=== PATIENT | female | born 1950 | race Caucasian/White ===

== ENCOUNTER 2016-09-06 17:32 | Emergency (ER) | payer MEDICAID ==
[2016-09-06] MEDS ORDERED: Ondansetron 4 MG Tab.DIS PO ONE (18:20)
[2016-09-06] MEDS ORDERED: Dexamethasone 4 MG/ML SDV PO ONE (18:21)
[2016-09-06] MEDS ORDERED: Morphine 10 MG/ML Syringe IM ONE (18:21)
--- NOTE | 2016-09-06 18:25 | EDM.PDOC ---
ED HPI GENERAL MEDICAL PROBLEM - General Chief Complaint: Back Pain or Injury Stated Complaint: BACK PAIN Time Seen by Provider: 09/06/16 18:00 Source of Information: Reports: Patient, Family History Limitations: Reports: No Limitations - History of Present Illness INITIAL COMMENTS - FREE TEXT/NARRATIVE: Lyric is a 65 year old female who presents to the ED today with ongoing progressive right mid back pain and spasms. Patient reports that around 5 days ago she was scrubbing her kitchen floor and when she turned to the side she immediately felt a "twinge" in her right mid back. Patient has had pain since that time that has now become "unbearable". Patient has been taking Flexeril and Ibuprofen at home with minimal relief. She denies any urinary symptoms, hematuria, fever or chills. Patient does endorse nausea which she attributes to her pain. Onset: Gradual Duration: Day(s): (5) right mid to lower back Pain Score (Numeric/FACES): 10 - Related Data Allergies Allergy/AdvReac Type Severity Reaction Status Date / Time aspirin Allergy Unknown pt unsure Verified 09/06/16 17:51 Penicillins Allergy Unknown pt unsure Verified 09/06/16 17:51 codeine Allergy Abdominal Verified 09/06/16 17:51 Cramps Home Meds: Home Meds Albuterol Sulfate [Proair Hfa] 8.5 gm IH ASDIRECTED PRN 04/15/13 [History] Cholecalciferol (Vitamin D3) [Vitamin D3] 5,000 unit PO DAILY 04/15/13 [History] Omeprazole 40 mg PO DAILY 04/15/13 [History] Budesonide/Formoterol [Symbicort 160-4.5 MCG] 2 puff INH BID 10/18/13 [History] Cetirizine [ZyrTEC] 10 mg PO DAILY 10/18/13 [History] Albuterol/Ipratropium [DuoNeb 3.0-0.5 MG/3 ML] 3 ml NEB QIDRT #120 neb 10/24/13 [Rx] Albuterol Sulfate 2.5 mg INH Q4H 12/06/15 [History] Potassium Chloride 20 mg PO DAILY 12/06/15 [History] Tiotropium [Spiriva Handihaler] 18 mcg INH DAILY 12/06/15 [History] Cyclobenzaprine HCl [Cyclobenzaprine HCl] 10 mg PO TID 02/20/16 [History] Ketorolac Tromethamine [IJD: Ketorolac Tromethamine] 10 mg PO ASDIRECTED PRN 12/26 [History] LORazepam [LORazepam] 2 mg PO DAILY 02/20/16 [History] Metoprolol Tartrate [Metoprolol Tartrate] 12.5 mg PO BID 02/20/16 [History] Ticagrelor [Brilinta] 90 mg PO DAILY 02/20/16 [History] Citalopram Hydrobromide [Celexa] 20 mg PO DAILY 09/06/16 [History] atorvaSTATin [Lipitor] 20 mg PO DAILY 09/06/16 [History] lamoTRIgine [LaMICtal] 200 mg PO DAILY 09/06/16 [History] lamoTRIgine [Lamotrigine] 100 mg PO BEDTIME 09/06/16 [History] risperiDONE Microspheres [RisperiDAL Consta] 25 mg IM ASDIRECTED 09/06/16 [ History] Past Medical History HEENT History: Reports: Impaired Vision Respiratory History: Reports: Asthma, COPD, Pneumonia, Recurrent, Other (See Below) Other Respiratory History: O2 at 2 L at night 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 History: Reports: 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: Musculoskeletal History: Reports: None Psychiatric History: Reports: Anxiety, Schizophrenia Dermatologic History: Reports: Psoriasis - Infectious Disease History Infectious Disease History: Reports: Chicken Pox - Past Surgical History HEENT Surgical History: Reports: Other (See Below) Other HEENT Surgeries/Procedures: ear surgery GI Surgical History: Reports: None Musculoskeletal Surgical History: Reports: Other (See Below) Other Musculoskeletal Surgeries/Procedures:: ankle surgery Oncologic Surgical History: Reports: Biopsy of Breast Social & Family History - Family History Cardiac: Reports: Afib, Hypertension Respiratory: Reports: COPD - Tobacco Use Smoking Status *Q: Former Smoker Years of Tobacco use: 35 Packs/Tins Daily: 2 Used Tobacco, but Quit: Yes Month Tobacco Last Used: feb Second Hand Smoke Exposure: Yes - Caffeine Use Caffeine Use: Reports: Coffee - Alcohol Use Days Per Week of Alcohol Use: 2 Number of Drinks Per Day: 2 Total Drinks Per Week: 4 - Recreational Drug Use Recreational Drug Use: No - Living Situation & Occupation Living situation: Reports: with Significant Other ED ROS GENERAL - Review of Systems Review Of Systems: ROS reveals no pertinent complaints other than HPI. ED EXAM, UPPER BACK/NECK PAIN - Physical Exam Exam: See Below Exam Limited By: No Limitations General Appearance: Alert, WD/WN, Moderate Distress Neck Exam: Non-Tender, Full Range of Motion Cardiovascular/Respiratory: Normal Peripheral Pulses, Normal Breath Sounds Back Exam: Normal Inspection, Muscle Spasm, Other (Right sided tenderness, right lateral to thoracic spine) Extremities: Normal Inspection, Normal Range of Motion Neurologic: metal coater II-XII nml As Tested, No Motor/Sensory Deficits, Oriented x 3 Skin Exam: Normal Color, Warm/Dry Lymphatic: No Adenopathy Course - Vital Signs Last Recorded V/S: Last Vital Signs Temp 36.1 C 09/06/16 17:46 Pulse 90 09/06/16 19:50 Resp 16 09/06/16 19:50 BP 131/98 H 09/06/16 19:50 Pulse Ox 92 L 09/06/16 19:50 Lyric is a 65 year old female with a hx of COPD who presents to the ED today with c/o mid right sided back pain. Please refer to HPI and focused exam. Patient on exam is well hydrated, she is non-toxic appearing. Patient is having spasms in her right sided thoracic area on exam, she is tender there as well, area of tenderness also encompasses CVA region. Likely musculoskeletal given hx although ureteral stone and kidney infection are on the differential. Patient was given a dose of oral Decadron here as well as IM morphine and IM Valium, she reports minimal pain relief with these. UA was obtained and returns with 30-40 WBC's and large leukocyte esterase as well as 50 glucose. UC pending. Given patient's positive UA and lack of pain relief with IM medication, PIV was established, patient was given 1 liter of NS and IV Rocephin. She was given IV dilaudid and toradol for her pain. Blood work obtained, CBC returns with white count of 13.4 and is otherwise unremarkable. CMP returns with sodium of 136, potassium of 3.5 and glucose of 213. Patient has no documented hx of diabetes. Creatinine is reassuring at 0.9. AST mildly elevated at 57 and alkaline phos is 150. Patient at 2100 is reporting she is feeling much better and is ready to go home. Will start patient on Keflex for her UTI which she can start tomorrow. She can take 400 mg ibuprofen for pain, I will send her home with Percocet for severe pain, narcotic safety discussed. I want patient to drink plenty of water , she can follow up with PCP in one week, blood sugar can be re-evaluated at that time. Likely incidental Type 2 diabetes on tonight's visit, HGB A1C should be checked at f/u appt. Reasons to return to the ED discussed, patient is agreeable and discharged with her daughter in stable condition. - Orders/Labs/Meds Orders: Active Orders 24 hr Category Date Time Status Peripheral IV Care [RC] . DIRECTED Care 09/06/16 19:25 Active CULTURE URINE [RM] Stat Lab 09/06/16 19:09 Received Peripheral IV Insertion Adult [OM.PC] Routine Oth 09/06/16 19:25 Ordered Labs: Laboratory Tests 09/06/16 09/06/16 09/06/16 Range/Units 18:42 19:35 19:35 WBC 13.4 H (4.5-11.0) K/uL RBC 4.99 (3.30-5.50) M/uL Hgb 14.4 (12.0-15.0) g/dL Hct 43.6 (36.0-48.0) % MCV 87 (80-98) fL MCH 29 (27-31) pg MCHC 33 (32-36) % Plt Count 293 (150-400) K/uL Neut % (Auto) 62 (36-66) % Lymph % (Auto) 25 (24-44) % [place] % (Auto) 8 H (2-6) % Eos % (Auto) 3 (2-4) % Baso % (Auto) 2 H (0-1) % Sodium 136 L (140-148) mmol/L Potassium 3.5 L (3.6-5.2) mmol/L Chloride 100 (100-108) mmol/L Carbon Dioxide 26 (21-32) mmol/L Anion Gap 13.5 (5.0-14.0) mmol/L BUN 9 (7-18) mg/dL Creatinine 0.9 (0.6-1.0) mg/dL Est Cr Clr Drug Dosing 45.96 mL/min Estimated GFR (MDRD) > 60 (>60) Glucose 213 H (74-106) mg/dL Calcium 8.9 (8.5-10.1) mg/dL Total Bilirubin 0.3 (0.2-1.0) mg/dL AST 57 H (15-37) U/L ALT 55 (12-78) U/L Alkaline Phosphatase 150 H (46-116) U/L Total Protein 8.4 H (6.4-8.2) g/dL Albumin 3.1 L (3.4-5.0) g/dL Globulin 5.3 H (2.3-3.5) g/dL Albumin/Globulin Ratio 0.6 L (1.2-2.2) Urine Color Yellow Urine Appearance Cloudy Urine pH 5.0 (4.5-8.0) Ur Specific [place] 1.020 (1.008-1.030) Urine Protein Trace (NEGATIVE) mg/dL Urine Glucose (UA) 50 H (NEGATIVE) mg/dL Urine Ketones Negative (NEGATIVE) mg/dL Urine Occult Blood Negative (NEGATIVE) Urine Nitrite Negative (NEGATIVE) Urine Bilirubin Small (NEGATIVE) Urine Urobilinogen 1 (NORMAL) mg/dL Ur Leukocyte Esterase Large (NEGATIVE) Urine RBC Not seen (0-5) Urine WBC 30-40 H (0-5) Ur Epithelial Cells Moderate Amorphous Sediment Few Urine Bacteria Moderate Urine Mucus Moderate Meds: Medications Discontinued Medications Generic Name Dose Route Start Last Admin Trade Name Joanie PRN Reason Stop Dose Admin Dexamethasone 10 mg 09/06/16 18:21 09/06/16 18:32 Dexamethasone PO 09/06/16 18:22 10 mg ONETIME ONE Administration Diazepam 10 mg 09/06/16 18:19 09/06/16 18:35 Valium IM 09/06/16 18:20 10 mg ONETIME ONE Administration Hydromorphone HCl 0.5 mg 09/06/16 19:26 09/06/16 20:01 Dilaudid IVPUSH 09/06/16 19:27 0.5 mg ONETIME ONE Administration Ceftriaxone Sodium 1 gm/ 50 mls @ 100 mls/hr 09/06/16 19:41 09/06/16 20:04 Sodium Chloride IV 09/06/16 20:10 100 mls/hr ONETIME ONE Administration Sodium Chloride 1,000 mls @ 999 mls/hr 09/06/16 19:53 09/06/16 19:59 Normal Saline IV 09/06/16 20:53 999 mls/hr .BOLUS ONE Administration Ketorolac Tromethamine 30 mg 09/06/16 19:25 09/06/16 20:00 Toradol IVPUSH 09/06/16 19:26 30 mg ONETIME ONE Administration Morphine Sulfate 6 mg 09/06/16 18:21 09/06/16 18:32 Morphine IM 09/06/16 18:22 6 mg ONETIME ONE Administration Ondansetron HCl 4 mg 09/06/16 18:20 09/06/16 18:32 Zofran Odt PO 09/06/16 18:21 4 mg ONETIME ONE Administration Ondansetron HCl 4 mg 09/06/16 19:25 09/06/16 19:58 Zofran IVPUSH 09/06/16 19:26 4 mg ONETIME ONE Administration Sodium Chloride 10 ml 09/06/16 19:25 09/06/16 20:01 Saline Flush FLUSH 10 ml ASDIRECTED PRN Administration Keep Vein Open Departure - Departure Time of Disposition: 21:30 Disposition: Home, Self-Care 01 Condition: Good Clinical Impression: Pyelonephritis - Discharge Information Instructions: Back Pain, Adult, [id number], Pyelonephritis, Adult, Easy-to- Read Referrals: Michelle Mojica PA [Primary Care Provider] - Forms: ED Department Discharge Additional Instructions: Stay well hydrated Take antibiotics as prescribed. Ibuprofen 400 mg every 6 hours Tylenol 650 mg every 4 hours Follow up with primary care doctor next week to discuss today's visit and have your blood sugar re-evaluated. - My Orders Last 24 Hours: My Active Orders 09/06/16 19:09 CULTURE URINE [RM] Stat 09/06/16 19:25 Peripheral IV Care [RC] . DIRECTED Peripheral IV Insertion Adult [OM.PC] Routine - Assessment/Plan Last 24 Hours: My Active Orders 09/06/16 19:09 CULTURE URINE [RM] Stat 09/06/16 19:25 Peripheral IV Care [RC] . DIRECTED Peripheral IV Insertion Adult [OM.PC] Routine
[2016-09-06] MEDS ORDERED: Ondansetron 4 MG/2 ML SDV IVPUSH ONE (19:25)
[2016-09-06] MEDS ORDERED: Sodium Chloride 0.9% 10 ML Syringe FLUSH PRN (19:25)
[2016-09-06] MEDS ORDERED: Ketorolac 30 MG/ML SDV IVPUSH ONE (19:25)
[2016-09-06] MEDS ORDERED: HYDROmorphone 0.5 MG/0.5 ML Syringe IVPUSH ONE (19:26)
[2016-09-06] MEDS ORDERED: cefTRIAXone 1 GM in Sodium Chloride 0.9% 50 ML IV ONE (19:41)
[2016-09-06 19:51] VITALS: BP 131/98
[2016-09-06] MEDS ORDERED: Sodium Chloride 0.9% 1,000 ML IV ONE (19:53)
== END 2016-09-06 21:18 | disposition home or self-care (01) ==
LOC: JP.ED 17:32
DX: N12 Tubulo-interstitial nephritis, not specified as acute or chronic (principal); J45.909 Unspecified asthma, uncomplicated; J44.9 Chronic obstructive pulmonary disease, unspecified; K21.9 Gastro-esophageal reflux disease without esophagitis; F20.9 Schizophrenia, unspecified; F41.9 Anxiety disorder, unspecified; Z98.890 Other specified postprocedural states; Z87.01 Personal history of pneumonia (recurrent); Z87.891 Personal history of nicotine dependence; Z79.899 Other long term (current) drug therapy; Z88.0 Allergy status to penicillin; Z88.8 Allergy status to other drugs, medicaments and biological substances
CPT/HCPCS: 36415; 80053; 81001; 85025; 87086; 96361; 96365; 96372; 96375; 99284; A9270; J0696; J1100; J1170; J1885; J2270; J2405; J3360; J7040; J7050

== ENCOUNTER 2017-08-12 20:52 | Emergency (ER) | payer MEDICAID ==
[2017-08-12 20:59] VITALS: BP 128/74
--- NOTE | 2017-08-12 21:27 | EDM.PDOC ---
ED HPI GENERAL MEDICAL PROBLEM - General Chief Complaint: Laceration Stated Complaint: MEDICAL VIA NORTH Time Seen by Provider: 08/12/17 20:56 Source of Information: Reports: Patient, EMS, Old Records, RN Notes Reviewed History Limitations: Reports: No Limitations - History of Present Illness INITIAL COMMENTS - FREE TEXT/NARRATIVE: EMS arrival Chief complaint 66-year-old female was drinking beer at the [employer], states that she had too much, lost her balance fell and hit the floor. No loss of consciousness No vomiting No abnormal behavior Injury to the face, no other injuries No limb injury History of psychiatric disorder States she doesn't drink regularly, only occasionally Last tetanus booster 2012 - Related Data Allergies Allergy/AdvReac Type Severity Reaction Status Date / Time aspirin Allergy Unknown pt unsure Verified 09/06/16 17:51 Penicillins Allergy Unknown pt unsure Verified 09/06/16 17:51 codeine Allergy Abdominal Verified 09/06/16 17:51 Cramps Home Meds: Home Meds Albuterol Sulfate [Proair Hfa] 8.5 gm IH ASDIRECTED PRN 04/15/13 [History] Cholecalciferol (Vitamin D3) [Vitamin D3] 5,000 unit PO DAILY 04/15/13 [History] Omeprazole 40 mg PO DAILY 04/15/13 [History] Budesonide/Formoterol [Symbicort 160-4.5 MCG] 2 puff INH BID 10/18/13 [History] Cetirizine [ZyrTEC] 10 mg PO DAILY 10/18/13 [History] Albuterol/Ipratropium [DuoNeb 3.0-0.5 MG/3 ML] 3 ml [facility] QIDRT #120 [facility] 10/24/13 [Rx] Albuterol Sulfate 2.5 mg INH Q4H 12/06/15 [History] Potassium Chloride 20 mg PO DAILY 12/06/15 [History] Tiotropium [Spiriva Handihaler] 18 mcg INH DAILY 12/06/15 [History] Cyclobenzaprine HCl 10 mg PO TID 02/20/16 [History] Ketorolac Tromethamine [IJD: Ketorolac Tromethamine] 10 mg PO ASDIRECTED PRN 12/26 [History] LORazepam 2 mg PO DAILY 02/20/16 [History] Metoprolol Tartrate 12.5 mg PO BID 02/20/16 [History] Ticagrelor [Brilinta] 90 mg PO DAILY 02/20/16 [History] Citalopram Hydrobromide [Celexa] 20 mg PO DAILY 09/06/16 [History] atorvaSTATin [Lipitor] 20 mg PO DAILY 09/06/16 [History] lamoTRIgine [LaMICtal] 200 mg PO DAILY 09/06/16 [History] lamoTRIgine [Lamotrigine] 100 mg PO BEDTIME 09/06/16 [History] risperiDONE Microspheres [RisperiDAL Consta] 25 mg IM ASDIRECTED 09/06/16 [ History] Past Medical History HEENT History: Reports: Impaired Vision Respiratory History: Reports: Asthma, COPD, Pneumonia, Recurrent, Other (See Below) Other Respiratory History: O2 at 2 L at night 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 History: Reports: 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: Musculoskeletal History: Reports: None Psychiatric History: Reports: Anxiety, Schizophrenia Dermatologic History: Reports: Psoriasis - Infectious Disease History Infectious Disease History: Reports: Chicken Pox - Past Surgical History HEENT Surgical History: Reports: Other (See Below) Other HEENT Surgeries/Procedures: ear surgery GI Surgical History: Reports: None Musculoskeletal Surgical History: Reports: Other (See Below) Other Musculoskeletal Surgeries/Procedures:: ankle surgery Oncologic Surgical History: Reports: Biopsy of Breast Social & Family History - Family History Cardiac: Reports: Afib, Hypertension Respiratory: Reports: COPD - Caffeine Use Caffeine Use: Reports: Coffee, Soda - Recreational Drug Use Recreational Drug Use: No - Living Situation & Occupation Living situation: Reports: with Significant Other ED ROS GENERAL - Review of Systems Review Of Systems: See Below Constitutional: Reports: No Symptoms HEENT: Reports: No Symptoms Respiratory: Reports: No Symptoms Cardiovascular: Reports: No Symptoms GI/Abdominal: Reports: No Symptoms. Denies: Nausea, Vomiting Musculoskeletal: Reports: No Symptoms Skin: Reports: Wound (Laceration right eyebrow area) Neurological: Reports: Difficulty Walking (Decreased balance, due to alcohol intoxication). Denies: Confusion, Dizziness, Headache Psychiatric: Reports: No Symptoms Immunologic: Reports: No Symptoms ED EXAM, SKIN/RASH Exam: See Below Exam Limited By: Intoxication (Strong odor of alcohol) General Appearance: No Apparent Distress, Other (Slurred speech, mild tachycardia, vital signs otherwise normal, responds appropriately to questions) Eye Exam: Right Eye: Other (Laceration right eyebrow area), Bilateral Eye: EOMI , Normal Inspection Ears: Normal External Exam, Normal Canal, Normal TMs Nose: Normal Inspection, Normal Mucosa Throat/Mouth: Normal Inspection, Normal Oropharynx Head: Facial Swelling (Right orbit, hematoma forming) Neck: Supple, Non-Tender Respiratory/Chest: No Respiratory Distress, No Accessory Muscle Use, Chest Non- Tender Cardiovascular: Regular Rate, Rhythm, Tachycardia (Mild) GI/Abdominal: Soft, Non-Tender Extremities: Normal Inspection, Non-Tender Neurological: No Motor/Sensory Deficits, Slow to Respond, Other (Slurred speech , but responds appropriately) Psychiatric: Normal Affect Skin: Warm, Dry, No Rash ED SKIN PROCEDURES - Laceration/Wound Repair Face Lac/Wound length In cm: 2 (Right eyebrow laterally) Appearance: Subcutaneous Distal NVT: Neuro & Vascular Intact, No Tendon Injury Anesthetic Type: Local Local Anesthesia - Lidocaine (Xylocaine): 1% with EPI Local Anesthetic Volume: 1cc Skin Prep: Other ([place]) Exploration/Debridement/Repair: Wound Explored, No Foreign Material Found Closed with: Sutures Suture Size: other (6-0) # of Sutures: 3 Suture Type: Prolene, Interrupted, Simple Tetanus Status Addressed: Yes Complications: No Course - Vital Signs Last Recorded V/S: Last Vital Signs Temp 35.6 C 08/12/17 21:07 Pulse 109 H 08/12/17 21:07 Resp 20 08/12/17 21:07 BP 128/74 08/12/17 21:07 Pulse Ox 94 L 08/12/17 21:07 - Re-Assessments/Exams Free Text/Narrative Re-Assessment/Exam: 08/12/17 21:26 66-year-old intoxicated female who fell sustaining a laceration to the right eyebrow area Wound repai Observe patient in emergency until stable for discharger 08/12/17 22:45 Ambulate well at this time Arrangements made for ride home She has 3 stitches to be removed in 5 days from the right eyebrow Departure - Departure Time of Disposition: 22:45 Disposition: Home, Self-Care 01 Condition: Good Clinical Impression: Alcohol intoxication Qualifiers: Complication of substance-induced condition: uncomplicated Qualified Code(s): F10.920 - Alcohol use, unspecified with intoxication, uncomplicated Laceration of eyebrow, right Qualifiers: Encounter type: initial encounter Qualified Code(s): S01.111A - Laceration without foreign body of right eyelid and periocular area, initial encounter Fall with injury Qualifiers: Encounter type: initial encounter Qualified Code(s): W19.XXXA - Unspecified fall, initial encounter - Discharge Information Instructions: Alcohol Intoxication, [id number], Laceration Care, Adult Referrals: PCP,None [Primary Care Provider] - Forms: ED Department Discharge Additional Instructions: You have 3 stitches to the right eyebrow area. These need to be removed in 5-6 days. Sure you control your drinking and that alcohol does not control you It is dangerous when you drink to the point of losing control
== END 2017-08-12 23:23 | disposition home or self-care (01) ==
LOC: JP.ED 20:52
DX: S01.111A Laceration without foreign body of right eyelid and periocular area, initial encounter (principal); F10.120 Alcohol abuse with intoxication, uncomplicated; J45.909 Unspecified asthma, uncomplicated; K21.9 Gastro-esophageal reflux disease without esophagitis; Z88.6 Allergy status to analgesic agent; Z88.0 Allergy status to penicillin; Z88.5 Allergy status to narcotic agent; Z79.899 Other long term (current) drug therapy; W01.10XA Fall on same level from slipping, tripping and stumbling with subsequent striking against unspecified object, initial encounter
CPT/HCPCS: 12011; 99283-25

== ENCOUNTER 2017-08-29 12:07 | Emergency (ER) | payer MEDICAID, OTHER ==
[2017-08-29 12:48] VITALS: BP 88/45
[2017-08-29] MEDS ORDERED: Lactated Ringers 1,000 ML IV ONE (12:54)
--- NOTE | 2017-08-29 12:57 | EDM.PDOC ---
ED HPI GENERAL MEDICAL PROBLEM - General Chief Complaint: Back Pain or Injury Stated Complaint: MEDICAL VIA NORTH Time Seen by Provider: 08/29/17 12:34 Source of Information: Reports: Patient, Family, Old Records, RN Notes Reviewed History Limitations: Reports: No Limitations - History of Present Illness INITIAL COMMENTS - FREE TEXT/NARRATIVE: 66-year-old female presents to the emergency department complaint of low back pain, she arrived via EMS services was given 100 g times a fentanyl in route pain is under control. She states the pain is from a compression fracture which she suffered during a trauma from a fall on August 12. She states that she recently underwent CAT scan which describes a compression fracture this was done at [facility]. Denies any loss of bladder or bowel no shortness of breath no chest pain - Related Data Allergies Allergy/AdvReac Type Severity Reaction Status Date / Time aspirin Allergy Unknown pt unsure Verified 08/29/17 12:11 Penicillins Allergy Unknown pt unsure Verified 08/29/17 12:11 codeine Allergy Abdominal Verified 08/29/17 12:11 Cramps Home Meds: Home Meds Albuterol Sulfate [Proair Hfa] 8.5 gm IH ASDIRECTED PRN 04/15/13 [History] Cholecalciferol (Vitamin D3) [Vitamin D3] 5,000 unit PO DAILY 04/15/13 [History] Omeprazole 40 mg PO DAILY 04/15/13 [History] Budesonide/Formoterol [Symbicort 160-4.5 MCG] 2 puff INH BID 10/18/13 [History] Cetirizine [ZyrTEC] 10 mg PO DAILY 10/18/13 [History] Albuterol/Ipratropium [DuoNeb 3.0-0.5 MG/3 ML] 3 ml NEB QIDRT #120 [facility] 10/24/13 [Rx] Albuterol Sulfate 2.5 mg INH Q4H 12/06/15 [History] Potassium Chloride 20 mg PO DAILY 12/06/15 [History] Cyclobenzaprine HCl 10 mg PO TID 02/20/16 [History] LORazepam 2 mg PO DAILY 02/20/16 [History] Metoprolol Tartrate 12.5 mg PO BID 02/20/16 [History] Citalopram Hydrobromide [Celexa] 20 mg PO DAILY 09/06/16 [History] atorvaSTATin [Lipitor] 20 mg PO DAILY 09/06/16 [History] lamoTRIgine [LaMICtal] 200 mg PO DAILY 09/06/16 [History] risperiDONE Microspheres [RisperiDAL Consta] 25 mg IM ASDIRECTED 09/06/16 [ History] Amitriptyline [Elavil] 08/29/17 [History] Folic Acid 08/29/17 [History] Ibuprofen 08/29/17 [History] Lisinopril 08/29/17 [History] Methotrexate Sodium [Methotrexate] 08/29/17 [History] metFORMIN [Glucophage] 08/29/17 [History] Past Medical History HEENT History: Reports: Impaired Vision Respiratory History: Reports: Asthma, COPD, Pneumonia, Recurrent, Other (See Below) Other Respiratory History: O2 at 2 L at night 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 History: Reports: GERD 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: Musculoskeletal History: Reports: Fracture (Compression) Psychiatric History: Reports: Anxiety, Schizophrenia Dermatologic History: Reports: Psoriasis - Infectious Disease History Infectious Disease History: Reports: Chicken Pox - Past Surgical History HEENT Surgical History: Reports: Other (See Below) Other HEENT Surgeries/Procedures: ear surgery GI Surgical History: Reports: None Musculoskeletal Surgical History: Reports: Other (See Below) Other Musculoskeletal Surgeries/Procedures:: ankle surgery t11 compression fx form 08/12/17 fall Oncologic Surgical History: Reports: Biopsy of Breast Social & Family History - Family History Cardiac: Reports: Afib, Hypertension Respiratory: Reports: COPD - Tobacco Use Smoking Status *Q: Never Smoker - Caffeine Use Caffeine Use: Reports: Coffee, Soda - Living Situation & Occupation Living situation: Reports: with Significant Other ED ROS GENERAL - Review of Systems Review Of Systems: See Below Constitutional: Reports: No Symptoms Respiratory: Reports: No Symptoms Cardiovascular: Reports: No Symptoms GI/Abdominal: Reports: No Symptoms Musculoskeletal: Reports: Back Pain Skin: Reports: No Symptoms Neurological: Reports: No Symptoms ED EXAM, UPPER BACK/NECK PAIN - Physical Exam Exam: See Below Exam Limited By: No Limitations General Appearance: Alert, WD/WN, No Apparent Distress Cardiovascular/Respiratory: Regular Rate, Rhythm, No M/R/G, Normal Peripheral Pulses, No JVD, Normal Breath Sounds GI/Abdominal: Soft, Non-Tender Back Exam: Normal Inspection, Decreased Range of Motion, Vertebral Tenderness ( L2 region). No: CVA Tenderness (R), CVA Tenderness (L), Muscle Spasm, Paraspinal Tenderness Course - Vital Signs Last Recorded V/S: Last Vital Signs Temp 95.7 F 08/29/17 12:46 Pulse 91 08/29/17 12:46 Resp 18 08/29/17 12:46 BP 88/45 L 08/29/17 12:46 Pulse Ox 93 L 08/29/17 12:46 - Orders/Labs/Meds Meds: Medications Discontinued Medications Generic Name Dose Route Start Last Admin Trade Name Joanie PRN Reason Stop Dose Admin Lactated Ringer's 1,000 mls @ 999 mls/hr 08/29/17 12:54 08/29/17 13:16 Ringers, Lactated IV 08/29/17 13:54 999 mls/hr BOLUS ONE Administration Ketorolac Tromethamine 30 mg 08/29/17 13:40 08/29/17 13:48 Toradol IVPUSH 08/29/17 13:41 30 mg ONETIME ONE Administration Departure - Departure Time of Disposition: 14:32 Disposition: Home, Self-Care 01 Condition: Fair Clinical Impression: Lumbar compression fracture Qualifiers: Encounter type: initial encounter Fracture type: closed - Discharge Information Referrals: PCP,None [Primary Care Provider] - Forms: ED Department Discharge Additional Instructions: Use Percocet as needed for breakthrough pain, please follow-up with your primary care provider on Thursday for further evaluation, call return to the emergency department worsening of symptoms - Assessment/Plan Plan: Assessment Acuity = acute Site and laterality = lumbar compression fracture Etiology = secondary to a fall Manifestations = pain Location of injury = Home Lab values = none Plan She had some relief with Toradol injection provided she also received a 1 L of fluids of which her blood pressure responded the hypotension was probably secondary to the initial fentanyl provided by EMS, she does have an MRI scheduled for September 15 and is scheduled for a back brace, provided Percocet 5/ 325 one tab by mouth 3 times a day when necessary total #10 she is to follow-up with her primary care on Thursday for further evaluation This note was dictated using [employer] voice recognition software please call with any questions on syntax or grammar.
[2017-08-29] MEDS ORDERED: Ketorolac 30 MG/ML SDV IVPUSH ONE (13:40)
== END 2017-08-29 15:05 | disposition home or self-care (01) ==
LOC: JP.ED 12:07
DX: S32.009A Unspecified fracture of unspecified lumbar vertebra, initial encounter for closed fracture (principal); J44.9 Chronic obstructive pulmonary disease, unspecified; K21.9 Gastro-esophageal reflux disease without esophagitis; F41.9 Anxiety disorder, unspecified; Z79.899 Other long term (current) drug therapy; Z79.82 Long term (current) use of aspirin; Z88.0 Allergy status to penicillin; Z88.5 Allergy status to narcotic agent; Z88.6 Allergy status to analgesic agent; W19.XXXA Unspecified fall, initial encounter
CPT/HCPCS: 96361; 96374; 99283; J1885; J7120